=== PATIENT | female | born 1960 | race Caucasian/White ===

== ENCOUNTER 2017-06-16 12:48 | Outpatient (RCR) | payer OTHER ==
[~2017-06-16] VITALS: Ht 152.4 cm; Wt 68.9 kg
[2017-06-16 14:21] VITALS: BP 125/73
[2017-06-16] MEDS ORDERED: PIPERACILLIN SODIUM/TAZOBACTAM 4.5 GM in NS (IVPB) 100 ML IV ONE (14:45)
[2017-06-16] MEDS ORDERED: OMEP20CA12 PO (14:51)
[2017-06-16] MEDS ORDERED: DICL75TA2 PO (14:51)
[2017-06-16] MEDS ORDERED: OXYC-471 PO (14:51)
[2017-06-16] MEDS ORDERED: LEVO50TA PO (14:51)
[2017-06-16] MEDS ORDERED: FOLI1TAB24 PO (14:51)
[2017-06-16] MEDS ORDERED: VANC1PLA10 IV (14:51)
[2017-06-16] MEDS ORDERED: CALC-987 PO (14:51)
[2017-06-16] MEDS ORDERED: PIPE4.5V IV (14:51)
[2017-06-16] MEDS ORDERED: METH2.5T PO (14:51)
[2017-06-16] MEDS ORDERED: LEFL20TA PO (14:51)
[2017-06-16 14:57] VITALS: BP 125/73
[2017-06-16 15:30] VITALS: BP 125/73
== END 2017-09-14 | disposition home or self-care (01) ==
LOC: SDC 12:48
PROVIDERS: ATTEND Orthopaedic Surgery
DX: Z45.2 Encounter for adjustment and management of vascular access device (principal); M96.842 Postprocedural seroma of a musculoskeletal structure following a musculoskeletal system procedure
CPT/HCPCS: 36569; 76937; 96365